=== PATIENT | female | born 2000 | race American Indian/Alaskan Native ===

== ENCOUNTER 2019-08-21 21:48 | Emergency (ER) | payer OTHER ==
[2019-08-21] MEDS ORDERED: IBUPROFEN PO ONE (23:14)
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
[2019-08-22 00:29] LABS: HCG Qualitative,Urine Negative (Negative)
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
[2019-08-22 04:35] VITALS: BP 138/78
== END 2019-08-22 02:00 | disposition home or self-care (01) ==
LOC: ED 21:48
DX: M54.6 Pain in thoracic spine (principal); M54.5 Low back pain; Z79.899 Other long term (current) drug therapy; V49.49XA Driver injured in collision with other motor vehicles in traffic accident, initial encounter; Y93.89 Activity, other specified; Y92.410 Unspecified street and highway as the place of occurrence of the external cause; Y99.8 Other external cause status
CPT/HCPCS: 72072; 72100; 81025